=== PATIENT | female | born 1995 | race Caucasian/White ===

== ENCOUNTER 2018-10-25 16:12 | Inpatient (IN) | payer OTHER ==
[~2018-10-25] VITALS: Ht 165.1 cm; Wt 119.5 kg
[~2018-10-25 16:12] MED LIST: FERR134T PO; PNV1TABL12 PO
[2018-10-25 18:13] VITALS: Ht 165.1 cm; Wt 119.5 kg
[2018-10-25 18:14] VITALS: BP 130/85; PULSE 81; RESP 17
--- NOTE | 2018-10-25 18:21 | HP ---
Date/Time of Note Date/Time of Note DATE: 10/25/18 TIME: 18:20 OB - History Hx of Present Free Text/Dictation 23-year-old 1 with single intrauterine at 40 weeks and 4 days with PRADIP of 10/21/2018 ( per patient by LMP and first trimester ultrasound ) complaining of occasional uterine contractions. She has care with Dr. Alvarado, who has not privileges at this hospital. She states good movement. She denies nausea, vomiting, shortness of breath, chest pain, headache, visual changes, vaginal bleeding or LOF. Chief Complaint: Occasional uterine contraction Estimated Due Date: Oct 21, 2018 : 1 Care: Good Care Ultrasounds: Normal mid trimester US (Patient) Obstetrical Complications: None Medical Complications: None Past Family/Social History * Past Medical, Surgical, Family and Obstetric Histories reviewed from ch art. OB Admission Exam Vital Signs Vital Signs Vital Signs Date Temp Pulse Resp B/P (MAP) Pulse Ox O2 O2 Flow FiO2 Time Delivery Rate 10/25/18 98.1 81 17 130/85 18:14 (100) Physical Exam HEENT: WNL Heart: Rhythm Normal Lungs: Clear Abdomen: WNL Extremities: Normal Reflexes: Normal Cervical Dilatation: 1cm Effacement: 50% Station: -3 Membranes: Intact Heart Rate: 140's Accelerations: Accelerations Present Decelerations: No Decelerations Varibility: Moderate Contractions on Admission: None Last 72 hourBlood Glucose US on 10/23/2018 PROCEDURE: US OB CLINICAL INDICATION: . Estimated weight, well-being TECHNIQUE: Multiple transabdominal sonographic images of the pelvis and gravid uterus were obtained. The images were reviewed on a PACS workstation. COMPARISON: US PELVIS 10/23/2018 FINDINGS: Cervix: Not delineated. Gestation: Single live intrauterine gestation. Cardiac activity: 154 beats per minute. Presentation: Cephalic Placenta: Location: Anterior. Appearance: No abruption. Amniotic Fluid: MOHIT = 10.1 cm on biophysical profile ultrasound performed at the same time Measurements: BPD = 9.31 cm, 37 weeks 6 days HC = 32.62 cm, 37 weeks 0 days AC = 35.09 cm, 39 weeks 0 days FL = 6.76 cm, 34 weeks 5 days Gestational Age: AUA estimated gestational age: 37 weeks 1 days LMP estimated gestational age: 40 weeks 2 days AUA estimated date of delivery: 11/12/2018 The EFW = 3283 g, 20.4 %ile based on LMP age. IMPRESSION: 1. Single live intrauterine gestation of 37 weeks 1 days by ultrasound criteria. 2. Estimated date of delivery of 11/12/2018. 3. Please see the measurements above. RPTAT: HJES .Nirmal Portlilo MD, MD Date Time OB Assessment/Plan Other plan: 23-year-old 1 with single intrauterine at 40 weeks and 4 days (per patient by LMP and first trimester ultrasound ), she had an ultrasound on 10/23/2018 here, a self data ultrasound currently she is 37 and 3 days. She was admitted for expectant management, obtain her record tomorrow and if she is 40 weeks and 4 days will start induction of labor - FHR: No sign of metabolic acidosis- Category I - Continuous EFM, toco - CBC, blood type and screen - Analgesia options with R/B/A discussed in detail with patient - Epidural per patient request - Please see the orders - Obtain record tomorrow - Patient signed out to upcoming laborist REGINE RUSSO Oct 25, 2018 18:21
[2018-10-25] MEDS ORDERED: OXYCODONE/ASPIRIN (4.88/325) TAB PO PRN (18:30)
[2018-10-25] MEDS ORDERED: CARBOPROST 250 MCG INJ IM PRN (18:30)
[2018-10-25] MEDS ORDERED: OXYTOCIN 30 UNITS/LR 500 ML IV PRN (18:30)
[2018-10-25] MEDS ORDERED: OXYCODONE/ACETAMINOPHEN (5/325) TAB PO PRN (18:30)
[2018-10-25] MEDS ORDERED: BUTORPHANOL 2 MG INJ IV PRN (18:30)
[2018-10-25] MEDS ORDERED: METHYLERGONOVINE 0.2 MG INJ IM PRN (18:30)
[2018-10-25] MEDS ORDERED: MISOPROSTOL 200 MCG TAB PR PRN (18:30)
[2018-10-25] MEDS ORDERED: LIDOCAINE 1% (MPF) 30 ML INJ INJ PRN (18:30)
[2018-10-25] MEDS ORDERED: OXYTOCIN 30 UNITS/LR 500 ML IV SCH ×2 (18:30)
--- NOTE | 2018-10-25 18:36 | TRIAGE ---
OB Triage Datetime Report Generated by CPN: 10/25/2018 18:36 Datetime: 10/25/2018 18:28 Assessment Type: Admission Assessment Vaginal Bleeding: None Maternal Assessment Level of Consciousness: Fully Conscious DTR's/Clonus: DTRs 2+; No Clonus Headache: Generalized Blurred Vision: No Respiratory Effort: Unlabored; Regular Rhythm; Equal Expansion Breath Sounds, Left: Clear and Equal Breath Sounds, Right: Clear and Equal Nausea/Vomiting: Denies RUQ Epigastric Pain: Denies Lower Extremities Edema: None Degree: Pitting Upper Extremities Edema: None Degree: None Facial Edema: None Fall Risk Assessment History of Falling: (0) No Secondary Diagnosis: (0) No Ambulatory Aid: (0) Bedrest/Nurse Assist IV Therapy: (0) No Gait: (0) Normal/Bedrest/Immobile Mental Status: (0) Oriented to Own Ability Fall Score: 0 Fall Risk Score Definition: No Risk: No action required Labor Evaluation Frequency: N/A Duration (sec)2399: N/A Pain Assessment Pain Scale: 0 Pain Presence: None/Denies Pain Type: N/A Vaginal Exam Dilatation (cms): 1.0 Effacement (%): 50 Station: -3 Membrane Status: Intact Datetime: 10/25/2018 18:22 Vaginal Exam Dilatation (cms): 1.5 Effacement (%): 50 Station: -3 Exam By: wliu Datetime: 10/25/2018 18:19 Labor Evaluation Frequency: x2 Monitor Mode: External Duration (sec)2399: 50-70 Quality: Mild Pattern: Normal: <= 5 Contractions in 10 Minutes Resting Tone [place]: Relaxed Heart Rate FHR Baseline Rate: 145 Variability: Moderate 6-25 bpm Decelerations: Late Category: Category II Datetime: 10/25/2018 18:07 Assessment Type: Triage Maternal Assessment Level of Consciousness: Fully Conscious DTR's/Clonus: DTRs 2+; No Clonus Headache: Denies Blurred Vision: No Respiratory Effort: Unlabored; Regular Rhythm; Equal Expansion Breath Sounds, Left: Clear and Equal Breath Sounds, Right: Clear and Equal Nausea/Vomiting: Denies RUQ Epigastric Pain: Denies Lower Extremities Edema: None Degree: None Upper Extremities Edema: None Degree: None Facial Edema: None Fall Risk Assessment History of Falling: (0) No Secondary Diagnosis: (0) No Ambulatory Aid: (0) Bedrest/Nurse Assist IV Therapy: (0) No Gait: (0) Normal/Bedrest/Immobile Mental Status: (0) Oriented to Own Ability Fall Score: 0 Fall Risk Score Definition: No Risk: No action required Datetime: 10/25/2018 18:05 Time of Arrival: 10/25/2018 18:00 EGA: 40.4 Arrived By: Ambulatory Arrived From: Office Chief Complaint: To ob triage from md office for r/o srom due to pt c/o gush of water came out this morning Movement: Present Contractions: Denies/Absent Rupture of Membranes: Unsure Vaginal Bleeding: None Vaginal Discharge: Denies Recent Sexual Intercouse: Denies Abdominal Trauma: Not Applicable Patient Complaints: Other Time Provider Notified: 10/25/2018 17:56 Provider Notified: Initial Plan: r/o srom Datetime: 10/25/2018 17:05 Time of Arrival: 10/25/2018 16:07 EGA: 40.4 Arrived By: Ambulatory Arrived From: Dr. Villanueva Movement: Present Rupture of Membranes: Unsure Vaginal Bleeding: None Vaginal Discharge: Denies (Annotations: Data stored by N on behalf of user) Datetime: 10/23/2018 01:41 EGA: 40.2 Fall Score: 0 Fall Risk Score Definition: No Risk: No action required
[2018-10-25] MEDS: LACTATED RINGER'S 1,000 ML IV SCH (19:39)
[2018-10-25] MEDS ORDERED: ACETAMINOPHEN 500 MG TAB PO STA (21:04)
[2018-10-25] MEDS: MISOPROSTOL 50 MCG CAPSULE PO SCH (21:20)
[2018-10-25] MEDS: CLINDAMYCIN 900 MG/D5W (PMX) 50 ML IVPB SCH (21:20)
[2018-10-26] MEDS: MISOPROSTOL 50 MCG CAPSULE PO SCH ×5 (01:03→18:13)
--- NOTE | 2018-10-26 02:07 | QN ---
Documentation Comment Patient's records were reviewed. Patient had limited care.. Her best EDC by 32 weeks ultrasound consistent with today's ultrasound. Per her best EDC established at 32 weeks patient is 40 weeks and 4 days. Patient desires labor induction Cervical exam performed cervix favorable. 2 cm / 80%/-2, vertex GBS positive. Patient reports allergy to penicillin With hives. Desires to proceed with induction. Risk and benefit of induction discussed with the patient modes of induction also explained to the patient. Based on ultrasound finding and patient best EDC patient appears to be 40 weeks and 4 days with favorable cervix, can proceed with labor induction GBS prophylaxis Start Cytotec orally times 1 , 50 cmg and will evaluate for induction with pitocin afterward Patient verbalized understanding All questions were answered DANIELLE GONSALES MD Oct 26, 2018 02:07
[2018-10-26] MEDS: LACTATED RINGER'S 1,000 ML IV SCH ×3 (02:58→22:12)
[2018-10-26] MEDS: CLINDAMYCIN 900 MG/D5W (PMX) 50 ML IVPB SCH ×3 (05:46→22:12)
[2018-10-26] MEDS ORDERED: NALOXONE (0.4 MG/ML) INJ ONE (11:13)
[2018-10-26] MEDS ORDERED: OXYTOCIN 30 UNITS/LR 500 ML IV SCH (20:30)
[2018-10-27] MEDS: CLINDAMYCIN 900 MG/D5W (PMX) 50 ML IVPB SCH ×2 (06:00→13:43)
[2018-10-27] MEDS: LACTATED RINGER'S 1,000 ML IV SCH ×2 (06:00→14:38)
--- NOTE | 2018-10-27 13:30 | QN ---
Documentation Comment IUP 40w6d ++ prein uria/BP 130's/90 very edematous cx3-4/90/-2 ARM light mec staine AF on pitocin CORINNA DE LEÓN MD Oct 27, 2018 13:30
--- NOTE | 2018-10-27 14:41 | PREAC ---
Date/Time of Note Date/Time of Note DATE: 10/27/18 TIME: 14:40 Anesthesia Eval and Record Evaluation Time Pre-Procedure Interview DATE: 10/27/18 TIME: 14:40 Age 23 Sex female NPO: 8 hrs Preoperative diagnosis labor pain Planned procedure epidural Past Medical History Past Medical History: Includes Cardio: HTN GI: Morbid obesity : Gestational age: (40.6) Surgery & Anesthesia Issues No known issue Meds Anticoagulation: No Beta Bella within 24 hr: No Reason Beta Bella not given: Pt. not on B-Bella Reported Medications Pnv Cmb#21/Iron/Folic Acid ( Complete Caplet) 1 Each Tablet, 1 EACH PO DAILY, TAB 10/23/18 Ferrous Sulfate (Iron) 134 Mg Tablet, 134 MG PO DAILY, TAB 10/23/18 Current Medications Lactated Ringer's 1,000 ml @ 125 mls/hr Q8H IV Last administered on 10/27/18at 14:38; Admin Dose 125 MLS/HR; Start 10/25/18 at 18:15 Butorphanol Tartrate (Stadol) 2 mg Q2H PRN IV PAIN; Start 10/25/18 at 18:30 Lidocaine (Xylocaine 1% (Mpf)) 30 ml ONCE PRN INJ EPISIOTOMY; Start 10/25/18 at 18:30 Oxytocin/Lactated Ringer's 500 ml @ 500 mls/hr ONCE POST IV ; Start 10/25/18 at 18:30 Oxytocin/Lactated Ringer's 500 ml @ 125 mls/hr POST IV ; Start 10/25/18 at 18:30 Oxycodone/ Acetaminophen (Percocet (5/ 325)) 2 tab ONCE PRN PO PAIN LEVEL 6-10; Start 10/25/18 at 18:30 Oxytocin/Lactated Ringer's 500 ml @ 0 mls/hr ONCE PRN IV VAGINAL BLEEDING; Start 10/25/18 at 18:30 Methylergonovine Maleate (Methergine) 0.2 mg ONCE PRN IM VAGINAL BLEEDING; Start 10/25/18 at 18:30 Carboprost Tromethamine (Hemabate) 250 mcg ONCE PRN IM VAGINAL BLEEDING; Start 10/25/18 at 18:30 Misoprostol (Cytotec) 1,[address] VAGINAL BLEEDING; Start 10/25/18 at 18:30 Clindamycin HCl/ Dextrose 50 ml @ 100 mls/hr Q8 IVPB Last administered on 10/27/18at 13:43; Admin Dose 100 MLS/HR; Start 10/25/18 at 22:00 Oxytocin/Lactated Ringer's 500 ml @ 0 mls/hr FOR INDUCTION IV Last administered on 10/26/18at 22:11; Admin Dose 0 MLS/HR; Start 10/26/18 at 20:30 Meds reviewed: Yes Allergies Coded Allergies: Penicillins (Verified Allergy, Intermediate, rash, 10/23/18) ibuprofen (Verified Allergy, Intermediate, burning sensation, 10/25/18) Allergies Reviewed: Yes Labs/Studies Labs Reviewed: Reviewed by anesthesiologist Result Diagram: 10/25/184 10/25/181837 test: Positive Pre-procedure Exam Last vitals Vital Signs Date Temp Pulse Resp B/P (MAP) Pulse Ox O2 O2 Flow FiO2 Time Delivery Rate 10/25/18 98.1 81 17 130/85 18:14 (100) Airway: Adequate mouth opening Mallampati: Mallampati I Teeth: Normal Lung: Normal Heart: Normal ASA Physical Status ASA physical status: 3 Emergency: None Planned Anesthetic Neuraxial: Epidural Pre-operative Attestations Prior to commencing anesthesia and surgery, the patient was re-evaluated, there was verification of: *The patient's identity *The results of appropriate recent lab work and preoperative vital signs *The above evaluation not changing prior to induction *Anesthetic plan, risk benefits, alternative and complications discussed with patient/family; questions answered; patient/family understands, accepts and wishes to proceed. MARTHA BHATIA MD Oct 27, 2018 14:41
[2018-10-27] MEDS ORDERED: FENTAnyl 2MCG/ML-ROPIV 0.2% 100 ML ONE (14:54)
--- NOTE | 2018-10-27 15:02 | PAC ---
Date/Time of Note Date/Time of Note DATE: 10/27/18 TIME: 15:01 Post-Anesthesia Notes Post-Anesthesia Note Last documented vital signs Vital Signs Date Temp Pulse Resp B/P (MAP) Pulse Ox O2 O2 Flow FiO2 Time Delivery Rate 10/25/18 98.1 81 17 130/85 97 18:14 (100) Activity: WNL Respiratory function: WNL Cardiovascular function: WNL Mental status: Baseline Pain reasonably controlled: Yes Hydration appropriate: Yes Nausea/Vomiting absent: No MARTHA BHATIA MD Oct 27, 2018 15:02
[2018-10-27] MEDS ORDERED: BENZOCAINE 20% 56 ML SPRAY TOP PRN (22:30)
[2018-10-27] MEDS ORDERED: ONDANSETRON 4 MG INJ IV PRN (22:30)
[2018-10-27] MEDS ORDERED: DIBUCAINE 1% 30 GM OINT TOP PRN (22:30)
[2018-10-27] MEDS ORDERED: MISOPROSTOL 200 MCG TAB PR PRN (22:30)
[2018-10-27] MEDS ORDERED: DEXTROSE 5%-LR 1,000 ML IV SCH (22:30)
[2018-10-27] MEDS ORDERED: CARBOPROST 250 MCG INJ IM PRN (22:30)
[2018-10-27] MEDS ORDERED: METHYLERGONOVINE 0.2 MG INJ IM PRN (22:30)
[2018-10-27] MEDS ORDERED: OXYCODONE/ASPIRIN (4.88/325) TAB PO PRN (22:30)
[2018-10-27] MEDS ORDERED: ZOLPIDEM 5 MG TAB PO PRN (22:30)
[2018-10-27] MEDS ORDERED: OXYTOCIN 30 UNITS/LR 500 ML IV PRN (22:30)
[2018-10-27] MEDS ORDERED: DIPHENHYDRAMINE 50 MG INJ IV PRN (22:30)
[2018-10-27] MEDS ORDERED: WITCH HAZEL/GLYCERIN PAD PR PRN (22:30)
[2018-10-27] MEDS ORDERED: SENNA/DOCUSATE NA (8.6MG/50MG) TAB PO PRN (22:30)
[2018-10-27] MEDS ORDERED: LACTATED RINGER'S 1,000 ML IV* SCH (22:30)
[2018-10-27 22:50] VITALS: BP 131/82; PULSE 108; RESP 19
[2018-10-28] VITALS: BP 130/64; PULSE 92; RESP 19
[2018-10-28] MEDS: LANOLIN HPA 1 PKT TOP PRN (00:17)
[2018-10-28] MEDS: ACETAMINOPHEN 325 MG TAB PO PRN ×4 (00:17→21:12)
--- NOTE | 2018-10-28 01:18 | LDN ---
Date/Time of Note Date/Time of Note DATE: 10/28/18 TIME: 01:13 Delivery Summary 23-year-old 1 with single intrauterine at 40 weeks and 5 days delivered a viable female over a median episiotomy. Nose and mouth suction. There was loose nuchal cord x1 which reduced. Cord clamped and cut. Baby given to the neonatology resuscitation team. Placenta delivered spontaneously and intact with three-vessel cord. Episiotomy repaired with 2-0 Vicryl. Patient tolerated procedure well Time of delivery 20; 51 Weight 7 pounds 5 ounces 8 at 1 minutes and 9 at 5 minutes EBL 200 mL Weeks of Gestation 40 weeks and 5 days Placenta Delivered: Spontaneously Meconium: Thick Episiotomy: Yes Anesthesia type: Epidural Estimated blood loss: 200 Sponge & Needle done & correct: Yes All needle counts correct: Yes Any foreign bodies felt in the: No Delivery Information Sex Infant Sex: female Apgars 1 Minute: 8 5 Minute: 9 10 Minute: 10 Suctioning Nose & mouth suctioned at aliya: No (4 thick meconium) Umbilical Cord Umbilical cord with: 3 Vessels Cord presentations: nuchal cord Nuchal cord present X: 1 Cord Blood was obtained: Yes Mother & Baby Disposition Disposition Mom & Baby to Maternity; Good: Yes REGINE RUSSO Oct 28, 2018 01:18
[2018-10-28 04:00] VITALS: BP 109/63; PULSE 96
--- NOTE | 2018-10-28 05:28 | PN ---
Date/Time of Note Date/Time of Note DATE: 10/28/18 TIME: 05:23 OB Subjective Subjective Subjective PPD# 1 Patient is doing well. She denies nausea, vomiting, shortness of breath, chest pain, headache. She has been ambulating without difficulty, tolerating regular diet. Pain is well controlled on current medications OB Objective Objective Objective Vital Signs Date Temp Pulse Resp B/P (MAP) Pulse Ox O2 O2 Flow FiO2 Time Delivery Rate 10/28/18 98.2 92 19 130/64 Room Air 00:00 (86) General: AAO X 3, comfortable, NAD, appropriate mood and affect. ABD: +BS. Soft, non-tender. Uterus 2 cm below umbilicus Flank: No CVA tenderness (B/L) LE: Mild edema. No clubbing, cyanosis, thigh or calf tenderness (B/L). Homans 'sign is negative 2 OB Assessment/Plan Other plan: 23-year-old 1 para 1001 s/p normal vaginal delivery at 40 weeks and 5 days. PPD#1 - AF, VSS - Baby is doing well, at bed side. She is bonding well - Contraception methods with R/B/A/FR discussed - Continue care - Discharge home tomorrow - Rx and instruction given - Follow up in 2 and 6 weeks with her primary OB at [facility] REGINE RUSSO Oct 28, 2018 05:28
[2018-10-28 08:30] VITALS: BP 114/69; PULSE 93; RESP 18
[2018-10-28 12:15] VITALS: BP 104/65; PULSE 85; RESP 18
--- NOTE | 2018-10-28 15:00 | NUR ---
PT IS RUBELLA NON-IMMUNE. MMR VACCINE INFORMATION PROVIDED. EDUCATED ON MD ORDER FOR MMR AND POTENTIAL RISKS TO FETUS IF PT WERE TO CATCH RUBELLA WHILE WITH A FUTURE CHILD. PT REFUSED VACCINE. VIS FORM LEFT WITH PT.
--- NOTE | 2018-10-28 15:45 | NUR ---
ASSUMED CARE OF PT AND BABY AT THIS TIME. PT IS COMFORTABLE AND STABLE, ID BANDS CHECKED, REINFORCED SAFETY, FAMILY MEMBERS IN ROOM, PT IS COMFORTABLE AND STABLE. PT DENIES PAIN AT THIS TIME. Addendum: 10/28/18 at 1618 by JOSE CRUZ ESCALERA RN Amended: Links added.
[2018-10-28 16:32] VITALS: BP 128/79; PULSE 83; RESP 18
--- NOTE | 2018-10-28 18:08 | NUR ---
EOSS: PT IS COMFORTABLE AND STABLE, BONDING WITH BABY, NO DISTRESS NOTED. Addendum: 10/28/18 at 1808 by JOSE CRUZ ESCALERA RN Amended: Links added.
[2018-10-28 20:00] VITALS: BP 121/67; PULSE 82; RESP 19
[2018-10-29] MEDS: ACETAMINOPHEN 325 MG TAB PO PRN (03:19)
[2018-10-29 04:00] VITALS: BP 112/70; PULSE 86; RESP 16
--- NOTE | 2018-10-29 05:52 | NUR ---
EOSS: PATIENT IN STABLE CONDITION. BONDING WELL WITH . WELL. AMBULATING WELL AND VOIDING, PASSING GAS, DUE TO BM. FUNDUS FIRM WITH SMALL AMOUNT OF LOCHIA. AFEBRILE.
[2018-10-29 08:40] VITALS: BP 123/74; PULSE 82; RESP 18
[2018-10-29] MEDS ORDERED: DIPHTH/TET/ACEL PERTUSS (ADULT) 0.5 ML VIAL IM* ONE (09:00)
[2018-10-29] MEDS ORDERED: MEASLES,MUMPS,RUBELLA VACCINE INJ SC* ONE (09:00)
[2018-10-29] MEDS: LANOLIN HPA 1 PKT TOP PRN (10:19)
--- NOTE | 2018-10-29 11:02 | QN ---
Documentation Comment PPD#1 is stable afebrile no VB +BM+voids VS stable Gen NAD Abd soft NT ND Genitalia No blood at perineum --->Discharge Home WILLIAM HOSKINS M.D. Oct 29, 2018 11:02
--- NOTE | 2018-10-29 11:03 | DS ---
Date/Time of Note Date/Time of Note DATE: 10/29/18 TIME: 11:02 Discharge Summary Admission/Discharge Info Admit Date/Time Oct 25, 2018 at 17:55 Discharge Date/Time Oct Discharge Diagnosis Patient Condition: Good Hospital Course uneventful Home Meds Reported Medications Pnv Cmb#21/Iron/Folic Acid ( Complete Caplet) 1 Each Tablet, 1 EACH PO DAILY, TAB 10/23/18 Ferrous Sulfate (Iron) 134 Mg Tablet, 134 MG PO DAILY, TAB 10/23/18 Primary Care Provider Medical Group WILLIAM Hobson M.D. Oct 29, 2018 11:03
--- NOTE | 2018-10-29 14:50 | NUR ---
PT DISCHARGED HOME IN STABLE CONDITION VIA WHEELCHAIR.
== END 2018-10-29 14:50 | disposition home or self-care (01) | DRG 807 ==
LOC: OBT 16:12 → L-D 16:13 → OBT 17:55 → L-D 17:55 → PP1 10-27 22:55
PROVIDERS: ADMIT Obstetrics & Gynecology; ATTEND Obstetrics & Gynecology
PROC: 10E0XZZ Delivery of Products of Conception, External Approach (ICD-10-PCS; principal; 2018-10-28)
PROC: 0W8NXZZ Division of Female Perineum, External Approach (ICD-10-PCS; 2018-10-28)
DX: O48.0 Post-term pregnancy (principal); Z37.0 Single live birth; Z3A.40 40 weeks gestation of pregnancy; O69.81X0 Labor and delivery complicated by cord around neck, without compression, not applicable or unspecified
CPT/HCPCS: 62319; 80053; 80307; 81001; 84560; 85025; 85610; 85730; 86592; 86850; 86900; 86901; 87340; 90715; 99464; G0463; J2310; J2405; J2590; J3010; J7120; J7121